=== PATIENT | male | born 1990 | race Caucasian/White ===

== ENCOUNTER 2023-07-22 08:11 | Emergency (ER) | payer OTHER ==
[2023-07-22 08:36] VITALS: BP 117/71; PULSE 75; RESP 18; TEMP 98.2; BMI 25.9
[2023-07-22] MEDS ORDERED: ACETAMINOPHEN 500 MG TABLET (FP) PO ONE ×2 (09:29→12:30)
[2023-07-22] MEDS ORDERED: ACETAMINOPHEN 325 MG TABLET (FP) ONE (09:35)
[2023-07-22] MEDS ORDERED: KETOROLAC TROMETHAMINE 30 MG/1 ML VIAL IM ONE (11:25)
[2023-07-22] MEDS ORDERED: DIPHTH,PERTUSS(ACELL),TET 0.5 ML DISP.SYRIN IM ONE ×2 (11:26→11:36)
[2023-07-22] MEDS ORDERED: KETOROLAC TROMETHAMINE 30 MG/1 ML VIAL ONE (11:35)
== END 2023-07-22 13:48 | disposition home or self-care (01) ==
LOC: JER 08:11
PROC: 3E0233Z Introduction of Anti-inflammatory into Muscle, Percutaneous Approach (ICD-10-PCS; principal; 2023-07-22)
PROC: 3E0234Z Introduction of Serum, Toxoid and Vaccine into Muscle, Percutaneous Approach (ICD-10-PCS; 2023-07-22)
DX: R10.2 Pelvic and perineal pain (principal); R26.2 Difficulty in walking, not elsewhere classified; V13.4XXA Pedal cycle driver injured in collision with car, pick-up truck or van in traffic accident, initial encounter; Y93.55 Activity, bike riding
CPT/HCPCS: 70450-TC; 71046-TC-FY; 72125-TC; 72128-TC; 72131-TC; 72170-TC-FY; 73630-TC-RT-FY; 90471; 90715; 96372; 99284-25